=== PATIENT | female | born 1985 | race Caucasian/White ===

== ENCOUNTER → 2017-10-07 | Outpatient (CLI) | payer OTHER ==
--- NOTE | 2017-10-07 15:25 | MAMMOGRAPHY REPORT ---
UNILATERAL RIGHT DIGITAL DIAGNOSTIC MAMMOGRAM TOMOSYNTHESIS WITH CAD AND TARGETED RIGHT ULTRASOUND: CLINICAL HISTORY: 32-year-old woman presents with pain and lump in the right breast. The patient elise cribes the pain as constant dull ache, sometimes increased in intensity, and worse with pressure, mos tly in the inferior aspect of the right breast. She feels a lump when grasping her right breast with fingers in the 12:00 and 6 o'clock position, mostly in the retroareolar aspect of the breast. No sk in thickening or erythema. No abnormal nipple discharge. Family history of breast cancer = 2 aunts in their 40s. Patient reports cessation of approximately 1 year ago and her breast has ladan nged in size since that time. TECHNIQUE: Right breast tomosynthesis in addition to standard 2D mammography was performed. Current s vickie was also evaluated with a Computer Aided Detection (CAD) system. COMPARISON: No prior exams were available for comparison. BREAST COMPOSITION: The tissue of the right breast is heterogeneously dense, which may obscure small masses. FINDINGS: A triangular palpable marker overlies the 5:00 to 6:00 anterior right breast, denoting the area of pain and lump pointed out by the patient. There is no suspicious mass, asymmetry, architectu ral distortion or calcification in the area of concern. There is a 3 mm nodular asymmetry in the lat eral posterior right breast on CC tomosynthesis slice 22/75, not definitely identified on the corresp onding MLO view. No architectural distortion or cystic or calcification. Further characterization w ith ultrasound was performed. No other suspicious masses, asymmetries, calcifications or areas of ar chitectural distortion are seen throughout the remainder of the right breast. Targeted ultrasound was performed in the right lateral breast to assess for the nodular asymmetry, an d also in the 12:00, retroareolar and 6:00 breast to assess for the patient's symptoms. In the area of pain and lump, sonographically normal tissue is seen without a suspicious solid or cystic mass. T here is isolated dense glandular tissue in the retroareolar breast, which could explain the patient's palpable findings when grasping from the 12:00 and 6 o'clock position. Throughout the lateral right breast, no discrete solid or cystic mass was identified. IMPRESSION: ACR-BI-RADS CATEGORY 3: PROBABLY BENIGN, TARGETED ULTRASOUND ACR-BI-RADS CATEGORY 3: PRO BABLY BENIGN 1. There is no suspicious mammographic or sonographic abnormality in the right breast to explain the constant aching pain or retroareolar lump described by the patient. Therefore, clinical follow-up i s recommended, as biopsy of a clinically suspicious mass should not be precluded by negative imaging. 2. A 3 mm nodular asymmetry in the lateral right breast has no suspicious sonographic correlate. Th is could represent a small cyst or lymph node that was not seen on ultrasound. Nevertheless, a short interval follow-up right diagnostic tomosynthesis mammogram and possible ultrasound is recommended t o ensure stability in 6 months. These results and recommendations were discussed with the patient at the time of the exam. She tenta tively scheduled a follow-up appointment prior to leaving our department. Approximately 10% of breast cancers are not detected with mammography. A negative mammographic report should not delay biopsy if a clinically suggestive mass is present. Mayra Hedrick M.D. ay/:10/07/2017 12:46:29 Maintenance Technician 2Nd Shift: Maikel ZAMORANO(Dorothy)(Arnoldo), [facility] letter sent: Follow Up Recommended 3 BI-RADS Code: ACR-BI-RADS Category 3: Probably Benign Ultrasound BI-RADS: ACR-BI-RADS Category 3: Pr obably Benign
== END | disposition home or self-care (01) ==
LOC: C.MAMM 11:02
PROVIDERS: ATTEND Family Medicine
DX: N64.4 Mastodynia (principal); N60.01 Solitary cyst of right breast

== ENCOUNTER → 2018-04-08 | Outpatient (CLI) | payer OTHER ==
--- NOTE | 2018-04-08 15:42 | MAMMOGRAPHY REPORT ---
UNILATERAL RIGHT DIGITAL DIAGNOSTIC MAMMOGRAM TOMOSYNTHESIS WITH CAD AND TARGETED RIGHT ULTRASOUND: CLINICAL HISTORY: Six-month follow-up of right breast asymmetry. The patient reports that the previou sly felt palpable lump in the right breast is not significantly changed than when she was last seen. She denies any new palpable lumps. Family history of breast cancer including 2 aunts in their 40s. TECHNIQUE: The study was acquired using full field digital technology and interpreted from soft copy. Breast tomosynthesis in addition to standard 2D mammography was performed. Current study was also ev aluated with a Computer Aided Detection (CAD) system. Right CC and MLO 2D and tomosynthesis images a nd spot compression right CC 2D and tomosynthesis images were obtained. COMPARISON: Comparison is made to exams dated: 10/07/2017 mammogram and 10/07/2017 ultrasound - [facility]. BREAST COMPOSITION: The tissue of right breast is heterogeneously dense, which may obscure small mass es. FINDINGS: Again noted is a small nodular asymmetry within the right lateral breast seen on the cc view only, no t significantly changed compared to the prior exam. The asymmetry effaces on the additional spot com pression views, without a suspicious mass, architectural distortion, or other suspicious finding seen on the additional spot compression views. The remainder of the right breast is stable mammographica lly compared to prior exams, without suspicious masses, calcifications, or areas of architectural dis tortion noted. Targeted ultrasound was performed of the right lateral breast in the region of the mammographic asymm etry. Sonographically normal tissue is seen in this region, without evidence of a mass or other susp icious sonographic abnormality. Ultrasound was again performed of the area of the palpable lump poin caron out by the patient in the right 1230 breast, approximately 4 cm from the nipple, which shows no s uspicious masses or other suspicious sonographic abnormalities as well. IMPRESSION: ACR-BI-RADS CATEGORY 3: PROBABLY BENIGN, ULTRASOUND ACR-BI-RADS CATEGORY 3: PROBABLY LINUS GN 1. The right lateral breast asymmetry is not significantly changed compared to the September 2017 exa m, and has the appearance of normal fibroglandular tissue on the spot compression views. No suspicio us sonographic correlate is evident. The asymmetry is probably benign and likely represents normal f ibroglandular tissue. Recommend follow-up diagnostic tomosynthesis mammograms and possible targeted ultrasound of the right breast in 6 months to confirm longer stability. 2. No suspicious mammographic or sonographic abnormality at the site of the palpable right breast tate mp pointed out by the patient. Recommend continued clinical follow-up. The patient has been verbally notified of the results. Some breast cancers are not detected with mammography. A negative mammographic report should not lemuel y biopsy if a clinically suggestive mass is present. Yissel Diop M.D. ah/:04/08/2018 12:12:24 Youth Development Specialist: RT Gregg(R)(M), [facility]; Yissel Diop MD, [facility] letter sent: Follow Up Recommended 3 OVERALL STUDY BIRADS: 3 Probably benign
== END | disposition home or self-care (01) ==
LOC: C.MAMM 11:17
PROVIDERS: ATTEND Family Medicine
DX: R92.8 Other abnormal and inconclusive findings on diagnostic imaging of breast (principal)